=== PATIENT | female | born 1985 | race Asian ===

== ENCOUNTER 2020-10-21 16:28 | Emergency (ER) | payer MEDICAID, SELFPAY ==
[2020-10-21 16:33] VITALS: Ht 157.5 cm
[2020-10-21 18:04] VITALS: BP 96/65
== END 2020-10-21 18:04 | disposition home or self-care (01) ==
LOC: ED 16:28
DX: O98.512 Other viral diseases complicating pregnancy, second trimester (principal); U07.1 COVID-19; Z3A.25 25 weeks gestation of pregnancy; Z88.2 Allergy status to sulfonamides
CPT/HCPCS: U0003